=== PATIENT | male | born 2005 | race African-American/Black ===

== ENCOUNTER 2024-09-29 17:55 | Inpatient (IN) | payer OTHER ==
[~2024-09-29] VITALS: Ht 175.3 cm; Wt 112.2 kg
[2024-09-29] MEDS ORDERED: CLIN300C58 PO (19:03)
[2024-09-29] MEDS: LIDOCAINE 1% 10 ML VIAL SQ ONE (20:56)
[2024-09-29 21:46] LABS: BASOPHILS % (AUTO) 0.8 % (0.0-2.0); EOSINOPHILS % (AUTO) 1.2 % (1.0-6.0); HEMATOCRIT 39.6 % (41-53); HEMOGLOBIN 12.8 g/dL (13.5-17.5); LYMPHOCYTES # (AUTO) 2.6 K/uL (1.0-4.8); LYMPHOCYTES % (AUTO) 27.6 % (22.0-44.0); MEAN CORPUSCULAR HEMOGLOBIN 26.8 pg (26.0-34.0); MEAN CORPUSCULAR HGB CONC 32.4 G/dL (31.0-37.0); MEAN CORPUSCULAR VOLUME 83 fL (80-100); MONOCYTES # (AUTO) 0.6 K/uL (0.1-1.0); MONOCYTES % (AUTO) 6.9 % (2.0-9.0); NEUTROPHILS % (AUTO) 63.5 % (40.0-70.0); PLATELET COUNT (AUTO) 352 K/uL (150-450); RED CELL DISTRIBUTION WIDTH 12.9 % (11.5-14.5); WHITE BLOOD COUNT (AUTO) 9.4 K/uL (4.5-11.0)
[2024-09-29 21:55] LABS: ANION GAP 8 mmol/L (8-16); CALCIUM, TOTAL 9.2 mg/dL (8.8-10.5); CARBON DIOXIDE 29 mmol/L (22-29); CHLORIDE 104 mmol/L (98-107); CREATININE 0.92 mg/dL (0.60-1.30); GLOMERULAR FILTR. RATE CALC > 60 mL/min (>60); GLUCOSE,RANDOM 80 mg/dL (70-110); POTASSIUM 4.1 mmol/L (3.5-5.1); SODIUM SERUM 141 mmol/L (136-145); UREA NITROGEN, BLOOD 7 mg/dL (7-18)
[2024-09-29 22:05] LABS: LACTIC ACID 1.2 mmol/L (0.4-2.0)
[2024-09-29] MEDS ORDERED: ONDANSETRON HCL 4 MG/2 ML VIAL IVP PRN (22:15)
[2024-09-29] MEDS: VANCOMYCIN 1GM/WATER(PEG/NADA) 200 ML IV ONE (22:39)
[2024-09-29] MEDS: ACETAMINOPHEN 325 MG TABLET PO PRN (23:40)
[2024-09-29] MEDS: KETOROLAC TROMETHAMINE 15 MG/ML VIAL IVP ONE (23:40)
[2024-09-29] MEDS: HEPARIN SODIUM,PORCINE 5,000 UNITS/ML VIAL SQ SCH (23:41)
[2024-09-30 02:10] VITALS: BP 133/83; PULSE 62; RESP 16; TEMP 97.7; O2SAT 99
[2024-09-30 04:45] VITALS: BP 108/74; PULSE 62; RESP 18; TEMP 98.1; O2SAT 98
[2024-09-30 08:00] VITALS: BP 134/89; PULSE 79; RESP 18; TEMP 97.7; O2SAT 100
[2024-09-30 08:01] LABS: BASOPHILS % (AUTO) 0.6 % (0.0-2.0); EOSINOPHILS % (AUTO) 1.5 % (1.0-6.0); HEMATOCRIT 37.6 % (41-53); HEMOGLOBIN 12.1 g/dL (13.5-17.5); LYMPHOCYTES # (AUTO) 2.6 K/uL (1.0-4.8); LYMPHOCYTES % (AUTO) 29.4 % (22.0-44.0); MEAN CORPUSCULAR HEMOGLOBIN 26.6 pg (26.0-34.0); MEAN CORPUSCULAR HGB CONC 32.1 G/dL (31.0-37.0); MEAN CORPUSCULAR VOLUME 83 fL (80-100); MONOCYTES # (AUTO) 0.8 K/uL (0.1-1.0); MONOCYTES % (AUTO) 8.9 % (2.0-9.0); NEUTROPHILS # (AUTO) 5.2 K/uL (1.8-7.7); NEUTROPHILS % (AUTO) 59.6 % (40.0-70.0); PLATELET COUNT (AUTO) 349 K/uL (150-450); RED BLOOD CELL COUNT(AUTO) 4.54 MIL/uL (4.50-5.90); RED CELL DISTRIBUTION WIDTH 12.8 % (11.5-14.5); WHITE BLOOD COUNT (AUTO) 8.7 K/uL (4.5-11.0)
[2024-09-30 08:12] LABS: ANION GAP 8 mmol/L (8-16); CALCIUM, TOTAL 9.2 mg/dL (8.8-10.5); CARBON DIOXIDE 27 mmol/L (22-29); CHLORIDE 105 mmol/L (98-107); CREATININE 0.87 mg/dL (0.60-1.30); GLOMERULAR FILTR. RATE CALC > 60 mL/min (>60); GLUCOSE,RANDOM 86 mg/dL (70-110); POTASSIUM 3.7 mmol/L (3.5-5.1); SODIUM SERUM 140 mmol/L (136-145); UREA NITROGEN, BLOOD 9 mg/dL (7-18)
[2024-09-30] MEDS ORDERED: SODIUM CHLORIDE 0.9% 250 ML IV ONE (08:21)
[2024-09-30] MEDS: VANCOMYCIN 1.25 GM/WATER(PEG) 250 ML IV SCH (08:30)
[2024-09-30] MEDS: DOCUSATE SODIUM 100 MG CAPSULE PO SCH (08:33)
[2024-09-30 12:00] VITALS: BP 126/82; PULSE 73; RESP 16; TEMP 97.9; O2SAT 100
[2024-09-30 16:00] VITALS: BP 123/81; PULSE 75; RESP 18; TEMP 99.1; O2SAT 100
[2024-09-30 20:18] VITALS: BP 112/68; PULSE 72; RESP 18; TEMP 98.6; O2SAT 99
[2024-09-30] MEDS ORDERED: SODIUM CHLORIDE 0.9% 500 ML IV ONE (23:38)
[2024-10-01 06:22] VITALS: BP 115/74; PULSE 68; RESP 18; TEMP 97.5; O2SAT 97
[2024-10-01] MEDS ORDERED: LIDOCAINE 1% 10 ML VIAL SQ ONE (08:15)
[2024-10-01 08:34] VITALS: BP 119/64; PULSE 60; RESP 18; TEMP 97.9; O2SAT 98
[2024-10-01 08:36] VITALS: BP 119/64; PULSE 60; RESP 18; TEMP 97.2; O2SAT 99
[2024-10-01 08:53] LABS: ANION GAP 7 mmol/L (8-16); CALCIUM, TOTAL 9.3 mg/dL (8.8-10.5); CARBON DIOXIDE 27 mmol/L (22-29); CHLORIDE 105 mmol/L (98-107); CREATININE 0.86 mg/dL (0.60-1.30); GLOMERULAR FILTR. RATE CALC > 60 mL/min (>60); GLUCOSE,RANDOM 82 mg/dL (70-110); POTASSIUM 4.1 mmol/L (3.5-5.1); SODIUM SERUM 139 mmol/L (136-145); UREA NITROGEN, BLOOD 11 mg/dL (7-18)
[2024-10-01] MEDS ORDERED: DOXY-354 PO (17:46)
== END 2024-10-01 20:45 | DRG 603 ==
LOC: EMS 18:06 → EDH 22:10 → 5N 09-30 02:08 → 6S 09-30 18:30
PROVIDERS: ADMIT Internal Medicine; ATTEND Internal Medicine
PROC: 0H90XZZ Drainage of Scalp Skin, External Approach (ICD-10-PCS; principal; 2024-09-29)
DX: L02.811 Cutaneous abscess of head [any part, except face] (principal); D64.9 Anemia, unspecified; L03.811 Cellulitis of head [any part, except face]; E66.01 Morbid (severe) obesity due to excess calories; Z68.37 Body mass index [BMI] 37.0-37.9, adult
CPT/HCPCS: 10060; 80048; 80202; 83605; 83735; 85025; 87040; 99285; G0378; J1644; J1885; J3490; J7040; J7050